=== PATIENT | female | born 2000 | race Caucasian/White ===

== ENCOUNTER 2019-03-18 21:41 | Emergency (ER) | payer OTHER ==
[~2019-03-18] VITALS: Ht 152.4 cm; Wt 76.5 kg
[2019-03-18 21:46] VITALS: Ht 152.4 cm; Wt 76.5 kg
[2019-03-19] MEDS ORDERED: ACETAMINOPHEN 325 MG TAB PO STA (02:19)
--- NOTE | 2019-03-19 02:24 | ERD ---
ER Documentation Chief Complaint Chief Complaint 10WKS PREG; VAG BLEED [id number]; WAS REFFERED BY CLINIC FOR U/S HPI Patient is a 18 years old female at 10 weeks presenting to the clinic for vaginal spotting x 1 month. Patient reports going to the clinic for routine ultrasound and heart could not be traced. Patient was referred to ER. Patient admits to mild low back pain. Patient denies fever, chills, night sweats, abdominal/pelvic pain, diarrhea, constipation, nausea, emesis, dysuria, urinary urgency, vaginal discharge. Patient admits to following up with [facility] and is currently on multivitamins. Patient reports LMP on January 04, 2019. ROS All systems reviewed and are negative except as per history of present illness. Medications Home Meds Active Scripts Nitrofurantoin Monohyd Macrocr* (Macrobid*) 100 Mg Capsr, 100 MG PO BID for 7 Days, #14 CAP Prov:CAYDEN BANERJEE PA-C 03/19/19 PMhx/Soc Medical and Surgical Hx: pt denies Medical Hx History of Surgery: Yes (C SECTION ) Anesthesia Reaction: No Hx Neurological Disorder: No Hx Respiratory Disorders: No Hx Cardiac Disorders: No Hx Psychiatric Problems: No Hx Miscellaneous Medical Probl: No Hx Alcohol Use: No Hx Substance Use: No Hx Tobacco Use: No FmHx Family History: No diabetes, No coronary disease, No other Physical Exam Vitals Vital Signs Date Temp Pulse Resp B/P (MAP) Pulse Ox O2 O2 Flow FiO2 Time Delivery Rate 03/19/19 98.4 75 18 101/60 99 05:04 (74) 03/18/19 98.0 79 18 121/56 98 21:46 (77) Physical Exam Const: No acute distress Head: Atraumatic Eyes: Normal Conjunctiva ENT: Normal External Ears, Nose and Mouth. Neck: Full range of motion. No meningismus. Resp: Clear to auscultation bilaterally Cardio: Regular rate and rhythm, no murmurs Abd: Soft, non tender, non distended. Normal bowel sounds Skin: No petechiae or rashes Back: No midline or flank tenderness Ext: No cyanosis, or edema Neur: Awake and alert Psych: Normal Mood and Affect Result Diagram: 03/19/19 0234 Results 24 hrs Laboratory Tests Test 03/19/19 02:34 White Blood Count 15.8 10^3/ul Red Blood Count 4.17 10^6/ul Hemoglobin 12.3 g/dl Hematocrit 38.2 % Mean Corpuscular Volume 91.6 fl Mean Corpuscular Hemoglobin 29.5 pg Mean Corpuscular Hemoglobin Concent 32.2 g/dl Red Cell Distribution Width 13.8 % Platelet Count 241 10^3/UL Mean Platelet Volume 11.0 fl Immature Granulocytes % 1.000 % Neutrophils % 63.0 % Lymphocytes % 27.3 % Monocytes % 6.9 % Eosinophils % 1.3 % Basophils % 0.5 % Nucleated Red Blood Cells % 0.0 /100WBC Immature Granulocytes # 0.160 10^3/ul Neutrophils # 9.9 10^3/ul Lymphocytes # 4.3 10^3/ul Monocytes # 1.1 10^3/ul Eosinophils # 0.2 10^3/ul Basophils # 0.1 10^3/ul Nucleated Red Blood Cells # 0.0 10^3/ul Urine Color YELLOW Urine Clarity SLIGHTLY CLOUDY Urine pH 6.0 Urine Specific [place] 1.019 Urine Ketones NEGATIVE mg/dL Urine Nitrite NEGATIVE mg/dL Urine Bilirubin NEGATIVE mg/dL Urine Urobilinogen NEGATIVE mg/dL Urine Leukocyte Esterase NEGATIVE [place]/ul Urine Microscopic RBC 0 /HPF Urine Microscopic WBC 2 /HPF Urine Squamous Epithelial Cells FEW /HPF Urine Bacteria FEW /HPF Urine Hemoglobin NEGATIVE mg/dL Urine Glucose NEGATIVE mg/dL Urine Total Protein NEGATIVE mg/dl Beta HCG, Quantitative 113071.0 mIU/ml Current Medications Medications Dose Sig/Davy Start Time Status Last (Trade) Ordered Route PRN Stop Time Admin Dose Reason Admin 650 mg ONCE STAT 03/19/19 DC 03/19/19 Acetaminophen PO 02:19 02:28 (Tylenol 03/19/19 02:20 Tab) Procedures/MDM Patient was seen and evaluated for vaginal spotting. CBC, Urinalysis revealed leukocytosis and urine bacteria which is significant for UTI and blood type O- positive. Beta hCG is consistent with intrauterine . Pelvic ultrasound revealed Single live intrauterine gestation of approximately 8 weeks 3 days. The estimated date of delivery is October 26, 2019. The ovaries were not visualized. Patient is stable and ready for discharge. F/U with [facility]. is stable without complications as of now. Departure Diagnosis: Primary Impression: Vaginal bleeding Condition: Stable Patient Instructions: VBPG Referrals: [facility] Additional Instructions: Patient advised to return to the ED immediately for new or worsening symptoms. Patient advised to follow up with primary care provider in the next 24-48 hours. Patient verbalized understanding and agrees with treatment plan and course of action. If patient has no primary care they may follow up with [facility] [address] [place] [id number] or [facility] [id number] [place] [id number] [address] [address] CAYDEN BANERJEE PA-C Mar 19, 2019 02:24
[2019-03-19] MEDS ORDERED: NITR-58 PO (04:43)
[2019-03-19 05:04] VITALS: BP 101/60; PULSE 75; RESP 18
== END 2019-03-19 05:05 | disposition home or self-care (01) ==
LOC: FTE 21:41
DX: O20.9 Hemorrhage in early pregnancy, unspecified (principal); Z3A.08 8 weeks gestation of pregnancy
CPT/HCPCS: 36415; 76801; 81001; 84702; 85025; 86900; 86901; Z7502; Z7610; 81003